=== PATIENT | female | born 1985 | race Caucasian/White ===

== ENCOUNTER → 2016-06-13 | Outpatient (CLI) | payer OTHER ==
[~2016-06-13] MED LIST: IOHEXOL 180 MG/ML 10 ML VIAL. INT UTERIN ONE
--- NOTE | 2016-06-13 15:14 | KCIC ---
Hysterosalpingogram Indication: I Reason For Study Reason: INFERTILITY / Spl. Instructions: FT 1:16, IMAGES 7, OMNI 180 15ML / History: Fluoroscopy time:1: 16 minutes 7 spot images were obtained Contrast:6 milliliters Omni 180 Findings/technique: The procedure was explained at all questions were answered. Informed consent was obtained. The patient was placed in the supine position on the fluoroscopy table. A sterile speculum was inserted into the vaginal canal and the cervix was visualized. Betadine swab for used to clean the vaginal vault. Then, a balloon tipped catheter was inserted into the cervical os and the balloon was inflated. Then, iodinated contrast was injected into the endometrial cavity under fluoroscopic observation.This demonstrates free spillage of contrast in the bilateral adnexa suggesting tubal patency. Impression: Patency of the bilateral fallopian tubes. Electronically signed by: Luciano Escobar (Jun 13, 2016 15:13:46)
== END | disposition home or self-care (01) ==
LOC: KCIC 12:38
PROVIDERS: ATTEND Obstetrics & Gynecology Obstetrics
DX: N97.9 Female infertility, unspecified (principal)
CPT/HCPCS: 74400